=== PATIENT | male | born 1960 | race Caucasian/White ===

== ENCOUNTER → 2016-09-11 | Outpatient (CLI) | payer MEDICARE, OTHER ==
--- NOTE | 2016-09-11 09:35 | REP ---
Chest x-ray: Two views. History: Cough. The patient is status post kidney transplant. Comparison chest x-ray August 18, 2014. Findings: Right hemidiaphragm remains slightly elevated. The lungs are well inflated and clear. The heart size is normal. Pulmonary vasculature is not increased. No significant bony abnormality is seen. Impression: No active disease. Signed by Arsenio Lau MD 09/11/2016 11:16 A
== END ==
LOC: M SMT 08:53
PROVIDERS: ATTEND Internal Medicine Nephrology
DX: Z94.0 Kidney transplant status (principal); R05 Cough

== ENCOUNTER → 2016-12-26 | Outpatient (REF) | payer MEDICARE, OTHER | LOC: M LAB REF 13:20 | PROVIDERS: ATTEND Internal Medicine Nephrology | DX: E78.00 Pure hypercholesterolemia, unspecified (principal); Z94.0 Kidney transplant status ==

== ENCOUNTER → 2017-08-25 | Outpatient (REF) | payer MEDICARE, OTHER ==
[2017-08-25 13:51] LABS: CHOLESTEROL LEVEL 137 MG/DL (<200); CHOLESTEROL RISK RATIO 2.209 (<5); HDL CHOLESTEROL 62 MG/DL (>40); LDL CHOLESTEROL 48.4 MG/DL (<100); NON-HDL-C 75 MG/DL; TRIGLYCERIDES LEVEL 133 MG/DL (<150)
[2017-08-28 14:14] LABS: CYCLOSPORINE LABCORP 88 ng/mL (100-400)
== END ==
LOC: M LAB REF 13:08
DX: Z94.0 Kidney transplant status (principal)
CPT/HCPCS: 80061

== ENCOUNTER → 2019-09-09 | Outpatient (REF) | payer MEDICARE, OTHER ==
[2019-09-09 20:15] LABS: ALBUMIN 3.3 GM/DL (3.2-5.2); BILIRUBIN,DIRECT 0.2 MG/DL (0.0-0.2); BILIRUBIN,TOTAL 0.6 MG/DL (0.2-1.0); CHOLESTEROL RISK RATIO 2.884 (<5); TOTAL PROTEIN 6.5 GM/DL (6.4-8.2)
== END ==
LOC: M LAB REF 16:32
PROVIDERS: ATTEND Nurse Practitioner Family
DX: E78.2 Mixed hyperlipidemia (principal); Z94.0 Kidney transplant status

== ENCOUNTER → 2019-11-26 | Outpatient (REF) | payer MEDICARE, OTHER | LOC: M LAB REF 14:43 | PROVIDERS: ATTEND Nurse Practitioner Family | DX: Z94.0 Kidney transplant status (principal) ==

== ENCOUNTER → 2020-01-21 | Outpatient (REF) | payer MEDICARE, OTHER | LOC: M LAB REF 17:15 | PROVIDERS: ATTEND Nurse Practitioner Family | DX: Z94.0 Kidney transplant status (principal) ==

== ENCOUNTER → 2020-09-22 | Outpatient (REF) | payer MEDICARE, OTHER | LOC: M LAB REF 16:56 | PROVIDERS: ATTEND Nurse Practitioner Family | DX: N39.0 Urinary tract infection, site not specified (principal); Z94.0 Kidney transplant status ==

== ENCOUNTER → 2020-11-22 | Outpatient (REF) | payer MEDICARE, OTHER | LOC: M LAB REF 16:47 | PROVIDERS: ATTEND Nurse Practitioner Family | DX: N39.0 Urinary tract infection, site not specified (principal) ==

== ENCOUNTER → 2020-12-23 | Outpatient (CLI) | payer MEDICARE, OTHER ==
[~2020-12-23] MED LIST: ACID10TA14 PO; CINA30TA4 PO; CYCL10CAP PO; ECOT81TA5 PO; FERR325T3 PO; FLOM0.4C39 PO; FOLI1TAB11 PO; MAGN64TASA PO; MM S100C PO; MYCO250C PO; PARI1CAP5 PO; PRAV10TA3 PO; PRED5CON PO; PREG100CA PO; RENATAB5 PO; SODI325T9 PO; TRAM1CAP15 PO
== END ==
LOC: M LABSMTC 09:15
PROVIDERS: ATTEND Anesthesiology
DX: Z01.812 Encounter for preprocedural laboratory examination (principal); Z20.822 Contact with and (suspected) exposure to COVID-19

== ENCOUNTER 2020-12-28 10:27 | Day surgery (SDC) | payer MEDICARE, BC, OTHER ==
[~2020-12-28] VITALS: Ht 175.3 cm; Wt 112.5 kg
[~2020-12-28 10:27] MED LIST changes: +NS 1,000 ML IV ONE
[2020-12-28] MEDS ORDERED: propofoL 500 MG/50 ML VIAL As Ordered ONE (11:40)
[2020-12-28] MEDS ORDERED: LIDOCAINE 2% 100MG/5ML SDV (FOR ANES.) As Ordered ONE (11:40)
[2020-12-28] MEDS ORDERED: fentaNYL 100 MCG/2 ML INJECTION (J3010) As Ordered ONE (11:41)
[2020-12-28] MEDS ORDERED: ePHEDrine SULFATE 25 MG/5 ML(5MG/ML) SYRINGE As Ordered ONE (13:15)
--- NOTE | 2020-12-28 13:46 | ROOR ---
Patient Name: Gurjit Cage Procedure Date: 12/28/2020 12:53 PM Date of : 1960 Age: 60 Room: [facility] [place] Gender: Male Note Status: Finalized Procedure: Upper GI endoscopy Indications: Suspected esophageal reflux, Status post gastric bypass Providers: Garth Gunderson MD Referring MD: Garth Gunderson MD Requesting Provider: Medicines: Monitored Anesthesia Care Complications: No immediate complications. Procedure: Pre-Anesthesia Assessment: - Prior to the procedure, a History and Physical was performed, and patient medications and allergies were reviewed. The patient is competent. The risks and benefits of the procedure and the sedation options and risks were discussed with the patient. All questions were answered and informed consent was obtained. Patient identification and proposed procedure were verified by the physician, the nurse and the bill collector in the endoscopy suite. Mental Status Examination: alert and oriented. Airway Examination: normal oropharyngeal airway and neck mobility. Prophylactic Antibiotics: The patient does not require prophylactic antibiotics. Prior Anticoagulants: The patient has taken no previous anticoagulant or antiplatelet agents. ASA Grade Assessment: III - A patient with severe systemic disease. After reviewing the risks and benefits, the patient was deemed in satisfactory condition to undergo the procedure. The anesthesia plan was to use monitored anesthesia care (MAC). Immediately prior to administration of medications, the patient was re-assessed for adequacy to receive sedatives. The heart rate, respiratory rate, oxygen saturations, blood pressure, adequacy of pulmonary ventilation, and response to care were monitored throughout the procedure. The physical status of the patient was re-assessed after the procedure. The Endoscope was introduced through the mouth, and advanced to the efferent jejunal loop. The upper GI endoscopy was accomplished without difficulty. The patient tolerated the procedure well. Findings: Two tongues of salmon-colored mucosa were present at 37 cm. Erosion was present at 36 cm. The maximum longitudinal extent of these esophageal mucosal changes was 2 cm in length. Mucosa was biopsied with a cold forceps for histology. One specimen bottle was sent to pathology. Evidence of a gastric bypass was found. A gastric pouch with a small size was found. The staple line appeared intact. The gastrojejunal anastomosis was characterized by erythema and visible sutures. This was traversed. The nmegh-br-ayfodji limb was characterized by healthy appearing mucosa. The lnbyvqcs-tv-zztgaht limb was not examined as it could not be reached. The examined jejunum was normal. Impression: - [place]-colored mucosa suspicious for short-segment Raymundo's esophagus. Biopsied. - Gastric bypass with a small-sized pouch and intact staple line. Gastrojejunal anastomosis characterized by erythema and visible sutures. - Normal examined jejunum. Recommendation: - Discharge patient to home. - Resume previous diet. - Continue present medications. - Await pathology results. - Return to endoscopist as previously scheduled. Procedure Code(s): --- Professional --- 86933, Esophagogastroduodenoscopy, flexible, transoral; with biopsy, single or multiple Diagnosis Code(s): --- Professional --- K22.8, Other specified diseases of esophagus Z98.84, Bariatric surgery status CPT copyright 2019 [employer]. All rights reserved. The codes documented in this report are preliminary and upon stick feeder review may be revised to meet current compliance requirements. Garth Gunderson MD Garth Gunderson MD 12/28/2020 1:46:02 PM Electronically signed by Garth Gunderson MD Number of Addenda: 0 Note Initiated On: 12/28/2020 12:53 PM Estimated Blood Loss: Estimated blood loss was minimal.
--- NOTE | 2020-12-28 14:00 | ROOR ---
Patient Name: Gujrit Cage Procedure Date: 12/28/2020 12:54 PM Date of : 1960 Age: 60 Room: [facility] Gender: Male Note Status: Finalized Procedure: Colonoscopy Indications: High risk colon cancer surveillance: Personal history of colonic polyps, Last colonoscopy: 2015 Providers: Garth Gunderson MD Referring MD: Garth Gunderson MD Requesting Provider: Medicines: Monitored Anesthesia Care Complications: No immediate complications. Procedure: Pre-Anesthesia Assessment: - Prior to the procedure, a History and Physical was performed, and patient medications and allergies were reviewed. The patient is competent. The risks and benefits of the procedure and the sedation options and risks were discussed with the patient. All questions were answered and informed consent was obtained. Patient identification and proposed procedure were verified by the physician, the nurse and the rn family practice in the endoscopy suite. Mental Status Examination: alert and oriented. Airway Examination: normal oropharyngeal airway and neck mobility. Prophylactic Antibiotics: The patient does not require prophylactic antibiotics. Prior Anticoagulants: The patient has taken no previous anticoagulant or antiplatelet agents. ASA Grade Assessment: III - A patient with severe systemic disease. After reviewing the risks and benefits, the patient was deemed in satisfactory condition to undergo the procedure. The anesthesia plan was to use monitored anesthesia care (MAC). Immediately prior to administration of medications, the patient was re-assessed for adequacy to receive sedatives. The heart rate, respiratory rate, oxygen saturations, blood pressure, adequacy of pulmonary ventilation, and response to care were monitored throughout the procedure. The physical status of the patient was re-assessed after the procedure. The Colonoscope was introduced through the anus and advanced to the cecum, identified by appendiceal orifice and ileocecal valve. The colonoscopy was somewhat difficult due to a redundant colon. Successful completion of the procedure was aided by using manual pressure. The patient tolerated the procedure well. The quality of the bowel preparation was good. Findings: Hemorrhoids were found on perianal exam. Many medium-mouthed diverticula were found in the sigmoid colon. The exam was otherwise without abnormality. Impression: - Hemorrhoids found on perianal exam. - Diverticulosis in the sigmoid colon. - The examination was otherwise normal. - No specimens collected. Recommendation: - Discharge patient to home. - Resume previous diet. - Continue present medications. - Repeat colonoscopy in 5 years for surveillance. Procedure Code(s): --- Professional --- 85066, Colonoscopy, flexible; diagnostic, including collection of specimen(s) by brushing or washing, when performed (separate procedure) Diagnosis Code(s): --- Professional --- Z86.010, Personal history of colonic polyps K64.9, Unspecified hemorrhoids K57.30, Diverticulosis of large intestine without perforation or abscess without bleeding CPT copyright 2019 [employer]. All rights reserved. The codes documented in this report are preliminary and upon loop cutter review may be revised to meet current compliance requirements. Garth Gunderson MD Garth Gunderson MD 12/28/2020 2:00:28 PM Electronically signed by Garth Gunderson MD Number of Addenda: 0 Note Initiated On: 12/28/2020 12:54 PM Estimated Blood Loss: Estimated blood loss: none.
[2020-12-28 14:10] VITALS: BP 143/77
== END 2020-12-28 14:44 | disposition home or self-care (01) ==
LOC: M OPP 10:27
PROVIDERS: ATTEND Surgery
DX: Z12.11 Encounter for screening for malignant neoplasm of colon (principal); Z86.010 Personal history of colon polyps; K64.8 Other hemorrhoids; Q43.8 Other specified congenital malformations of intestine; K22.8 Other specified diseases of esophagus; Z98.84 Bariatric surgery status; Z94.0 Kidney transplant status; K21.9 Gastro-esophageal reflux disease without esophagitis; R12 Heartburn; Z79.82 Long term (current) use of aspirin; Z79.899 Other long term (current) drug therapy; Z79.891 Long term (current) use of opiate analgesic; Z88.5 Allergy status to narcotic agent
CPT/HCPCS: 43239; 88305; G0105; J3010

== ENCOUNTER → 2021-01-18 | Outpatient (REF) | payer MEDICARE, BC, OTHER ==
[~2021-01-18] MED LIST changes: -NS 1,000 ML IV ONE
== END ==
LOC: M LAB REF 13:22
PROVIDERS: ATTEND Nurse Practitioner Family
DX: Z94.0 Kidney transplant status (principal); E83.42 Hypomagnesemia; N39.0 Urinary tract infection, site not specified

== ENCOUNTER 2021-09-03 14:29 | Emergency (ER) | payer MEDICARE, BC, OTHER ==
[~2021-09-03] VITALS: Ht 175.3 cm; Wt 111.4 kg
[~2021-09-03 14:29] MED LIST changes: -PARI1CAP5 PO; +[UNRECOGNIZED DRUG - CODE] PO
[2021-09-03 14:30] VITALS: BP 116/57
== END 2021-09-03 18:02 | disposition home or self-care (01) ==
LOC: M ED 14:29
DX: Z48.02 Encounter for removal of sutures (principal); Z94.0 Kidney transplant status; Z98.84 Bariatric surgery status; Z79.899 Other long term (current) drug therapy

== ENCOUNTER → 2021-12-05 | Outpatient (REF) | payer MEDICARE, BC, OTHER | LOC: M LAB REF 16:45 | PROVIDERS: ATTEND Nurse Practitioner Family | DX: Z94.0 Kidney transplant status (principal); N39.0 Urinary tract infection, site not specified ==

== ENCOUNTER → 2021-12-31 | Outpatient (REF) | payer MEDICARE, BC, OTHER ==
[2021-12-31 14:27] LABS: BASO # 0.1 10^3/uL (0.0-0.2); BASO % 0.5 % (0.0-1.0); EOS # 0.2 10^3/uL (0.0-0.5); EOS % 1.4 % (0.0-3.0); HEMOGLOBIN 11.4 g/dl (13.5-17.5); LYMPH # 1.3 10^3/uL (1.5-5.0); LYMPH % 9.7 % (24.0-44.0); MEAN CORPUSCULAR HEMOGLOBIN 28.4 pg (27.0-33.0); MEAN CORPUSCULAR VOLUME 94.8 fl (80.0-96.0); MONO # 1.3 10^3/uL (0.0-0.8); MONO % 9.7 % (2.0-8.0); NEUTROPHILS # 10.1 10^3/uL (1.5-8.5); NEUTROPHILS % 78.2 % (36.0-66.0); PLATELET COUNT, AUTOMATED 191 10^3/uL (150-450); RED BLOOD COUNT 4.01 10^6/uL (4.30-6.10); WHITE BLOOD COUNT 12.9 10^3/uL (4.0-10.0)
[2021-12-31 14:58] LABS: APPEARANCE, URINE MANUAL CLEAR (CLEAR); BILIRUBIN, URINE MANUAL NEGATIVE (NEGATIVE); BLOOD URINE MANUAL NEGATIVE (NEGATIVE); COLOR, URINE MANUAL YELLOW (YELLOW); GLUCOSE, URINE (UA) MANUAL NEGATIVE (NEGATIVE); KETONE, URINE MANUAL NEGATIVE (NEGATIVE); NITRITE, URINE MANUAL NEGATIVE (NEGATIVE); PROTEIN, URINE MANUAL TRACE mg/dL (NEGATIVE); UROBILINOGEN, URINE MANUAL NORMAL (NORMAL)
[2021-12-31 14:59] LABS: LEUKOCYTE ESTERASE, URINE MAN TRACE (NEGATIVE)
[2021-12-31 15:05] LABS: INR 0.98; PROTHROMBIN TIME 13.3 SECONDS (12.7-14.5)
[2021-12-31 15:07] LABS: CALCIUM LEVEL 8.1 MG/DL (8.8-10.2); CREATININE FOR GFR 4.86 MG/DL (0.70-1.30); POTASSIUM SERUM 4.6 MEQ/L (3.5-5.1)
[2021-12-31 15:17] LABS: BACTERIA, URINE NONE SEEN; MUCUS, URINE MOD AMOUNT (NEGATIVE); SQUAMOUS EPITHELIAL CELL URINE MOD AMOUNT /hpf (SMALL AMT); TRANSITIONAL EPI CELLS, URINE SMALL AMOUNT /hpf
[2021-12-31 15:18] LABS: AMORPHOUS SEDIMENT, URINE SMALL AMOUNT (NEGATIVE); GRANULAR CAST, URINE 0-1 /lpf; HYALINE CAST, URINE NONE SEEN /lpf (0-1)
== END ==
LOC: M LAB REF 14:01
DX: R97.20 Elevated prostate specific antigen [PSA] (principal); Z79.01 Long term (current) use of anticoagulants

== ENCOUNTER → 2022-01-08 | Outpatient (REF) | payer MEDICARE, BC, OTHER | LOC: M LAB REF 17:14 | PROVIDERS: ATTEND Nurse Practitioner Family | DX: Z94.0 Kidney transplant status (principal) ==

== ENCOUNTER → 2022-02-07 | Outpatient (CLI) | payer MEDICARE, BC, OTHER | LOC: M WUC 10:21 | PROVIDERS: ATTEND Nurse Practitioner Family | DX: R05.1 Acute cough (principal); Z94.0 Kidney transplant status ==

== ENCOUNTER → 2022-08-28 | Outpatient (REF) | payer MEDICARE, OTHER ==
[2022-08-28 18:08] LABS: PERCENT SATURATION 37.7 % (19.7-50.0)
== END ==
LOC: M LAB REF 17:28
PROVIDERS: ATTEND Nurse Practitioner Family
DX: Z94.0 Kidney transplant status (principal); D50.9 Iron deficiency anemia, unspecified

== ENCOUNTER → 2022-09-24 | Outpatient (CLI) | payer MEDICARE, BC, OTHER | LOC: M RAD 11:52 | PROVIDERS: ATTEND Nurse Practitioner Family | DX: R39.11 Hesitancy of micturition (principal); Q61.02 Congenital multiple renal cysts; Z94.0 Kidney transplant status ==

== ENCOUNTER → 2022-09-24 | Outpatient (CLI) | payer MEDICARE, BC, OTHER ==
[2022-09-24 13:10] LABS: BASO % 0.5 % (0.0-1.0); EOS # 0.1 10^3/uL (0.0-0.5); EOS % 0.9 % (0.0-3.0); HEMATOCRIT 34.2 % (42.0-52.0); HEMOGLOBIN 10.3 g/dl (13.5-17.5); LYMPH # 1.4 10^3/uL (1.5-5.0); LYMPH % 20.9 % (24.0-44.0); MEAN CORPUSCULAR HEMOGLOBIN 28.8 pg (27.0-33.0); MEAN CORPUSCULAR HGB CONC 30.1 g/dl (32.0-36.5); MEAN CORPUSCULAR VOLUME 95.5 fl (80.0-96.0); MONO # 0.5 10^3/uL (0.0-0.8); MONO % 7.6 % (2.0-8.0); NEUTROPHILS # 4.5 10^3/uL (1.5-8.5); NEUTROPHILS % 69.6 % (36.0-66.0); PLATELET COUNT, AUTOMATED 140 10^3/uL (150-450); RED BLOOD COUNT 3.58 10^6/uL (4.30-6.10); WHITE BLOOD COUNT 6.5 10^3/uL (4.0-10.0)
[2022-09-24 14:03] LABS: ALBUMIN 2.9 G/DL (3.2-5.2); BILIRUBIN,TOTAL 0.5 MG/DL (0.3-1.2); CALCIUM LEVEL 8.1 MG/DL (8.3-10.6); CHOLESTEROL RISK RATIO 2.53 (<5); CREATININE FOR GFR 4.92 MG/DL (0.70-1.30); GLOMERULAR FILTRATION RATE 12.8 (>49); HDL CHOLESTEROL 49.7 MG/DL (>40); LDL CHOLESTEROL 59.1 MG/DL (<100); NON-HDL-C 76.3 MG/DL; POTASSIUM SERUM 5.1 MMOL/L (3.5-5.1); TOTAL PROTEIN 5.4 G/DL (5.7-8.2)
[2022-09-24 14:06] LABS: THYROID STIMULATING HORMONE 1.15 uIU/ML (0.55-4.78)
[2022-09-24 14:07] LABS: FREE T4 0.85 NG/DL (0.89-1.76)
== END ==
LOC: M WUC 09:04
PROVIDERS: ATTEND Physician Assistant
DX: E78.5 Hyperlipidemia, unspecified (principal); R39.11 Hesitancy of micturition; Q61.02 Congenital multiple renal cysts; Z12.5 Encounter for screening for malignant neoplasm of prostate; Z13.29 Encounter for screening for other suspected endocrine disorder; Z94.0 Kidney transplant status; Z79.899 Other long term (current) drug therapy
CPT/HCPCS: 36415; 76776; 76857; 80053; 80061; 83036; 84439; 84443; 85025; G0103

== ENCOUNTER → 2022-10-04 | Outpatient (CLI) | payer MEDICARE, BC, OTHER | LOC: M WHC 10:32 | PROVIDERS: ATTEND Physician Assistant | DX: Z13.820 Encounter for screening for osteoporosis (principal); M81.0 Age-related osteoporosis without current pathological fracture; M85.851 Other specified disorders of bone density and structure, right thigh; N40.1 Benign prostatic hyperplasia with lower urinary tract symptoms ==

== ENCOUNTER → 2022-11-06 | Outpatient (CLI) | payer MEDICARE, BC, OTHER | LOC: M RAD 10:36 | PROVIDERS: ATTEND Surgery Vascular Surgery | DX: N18.6 End stage renal disease (principal) ==

== ENCOUNTER → 2022-11-08 | Outpatient (REF) | payer MEDICARE, OTHER | LOC: M LAB REF 16:47 | PROVIDERS: ATTEND Nurse Practitioner Family | DX: Z94.0 Kidney transplant status (principal) ==

== ENCOUNTER → 2023-08-26 | Outpatient (REF) | payer MEDICARE, OTHER | LOC: M LAB REF 17:21 | PROVIDERS: ATTEND Nurse Practitioner Family | DX: Z94.0 Kidney transplant status (principal) ==

== ENCOUNTER → 2023-10-23 | Outpatient (REF) | payer MEDICARE, OTHER | LOC: M LAB REF 17:49 | PROVIDERS: ATTEND Nurse Practitioner Family | DX: N18.4 Chronic kidney disease, stage 4 (severe) (principal) ==

== ENCOUNTER → 2023-11-06 | Outpatient (REF) | payer MEDICARE, OTHER | LOC: M LAB REF 13:27 | PROVIDERS: ATTEND Nurse Practitioner Family | DX: Z94.0 Kidney transplant status (principal) ==

== ENCOUNTER → 2023-12-23 | Outpatient (REF) | payer MEDICARE, OTHER ==
[2023-12-23 19:42] LABS: ALBUMIN 3.3 G/DL (3.2-5.2); BILIRUBIN,DIRECT 0.2 MG/DL (<0.4); BILIRUBIN,TOTAL 0.4 MG/DL (0.3-1.2)
== END ==
LOC: M LAB REF 17:11
PROVIDERS: ATTEND Nurse Practitioner Family
DX: N39.0 Urinary tract infection, site not specified (principal); N18.4 Chronic kidney disease, stage 4 (severe); Z94.0 Kidney transplant status

== ENCOUNTER → 2024-11-02 | Outpatient (REF) | payer MEDICARE, OTHER ==
[~2024-11-02] MED LIST changes: -FLOM0.4C39 PO; -PRAV10TA3 PO; +PRAV10TA43 PO; +PREG-35 PO; -PREG100CA PO; +TAMS-18 PO
[2024-11-02 19:52] LABS: HEPATITIS B SURFACE ANTIBODY POSITIVE (POSITIVE)
[2024-11-02 20:24] LABS: HEPATITIS C VIRUS ABY INDEX 0.53 INDEX (<0.8)
== END ==
LOC: M LAB REF 18:18
PROVIDERS: ATTEND Nurse Practitioner Family
DX: Z94.0 Kidney transplant status (principal); N18.4 Chronic kidney disease, stage 4 (severe); Z11.59 Encounter for screening for other viral diseases

== ENCOUNTER → 2024-11-15 | Outpatient (POV) | payer MEDICARE, BC ==
[~2024-11-15] VITALS: Ht 172.7 cm; Wt 106.8 kg
[2024-11-15 13:05] VITALS: BP 148/86; O2SAT 99
== END ==
LOC: M IRPOV 12:45
PROVIDERS: ATTEND Registered Nurse School
DX: R22.1 Localized swelling, mass and lump, neck (principal); Z79.82 Long term (current) use of aspirin; Z79.899 Other long term (current) drug therapy; Z83.3 Family history of diabetes mellitus; Z88.5 Allergy status to narcotic agent; Z94.0 Kidney transplant status

== ENCOUNTER → 2024-11-22 | Outpatient (CLI) | payer MEDICARE, BC ==
[2024-11-22] MEDS: LIDOCAINE 1% MDV 20 ML VIAL SC SCH (13:30)
[2024-11-22 13:35] VITALS: TEMP 98.3
[2024-11-22 13:58] VITALS: BP 109/76; O2SAT 96
== END ==
LOC: M IRPRO 13:25
PROVIDERS: ATTEND Registered Nurse School
DX: R22.1 Localized swelling, mass and lump, neck (principal)